=== PATIENT | male | born 1995 | race Hispanic/Latino ===

== ENCOUNTER 2021-03-15 02:19 | Emergency (ER) | payer OTHER, SELFPAY ==
[2021-03-15] MEDS ORDERED: Lidocaine 1% PF 5 ML VIAL ONE (02:42)
== END 2021-03-15 03:10 | disposition home or self-care (01) ==
LOC: BURERS 02:19
DX: S60.122A Contusion of left index finger with damage to nail, initial encounter (principal); X58.XXXA Exposure to other specified factors, initial encounter
CPT/HCPCS: 11740

== ENCOUNTER 2021-07-16 21:23 | Emergency (ER) | payer OTHER | END 2021-07-16 23:02 | disposition home or self-care (01) | LOC: BURERS 21:23 | DX: T18.3XXA Foreign body in small intestine, initial encounter (principal) | CPT/HCPCS: 71046; 74176 ==

== ENCOUNTER 2023-10-10 23:30 | Emergency (ER) | payer OTHER ==
[2023-10-11] MEDS ORDERED: Morphine 4 MG/ML VIAL ONE (00:03)
== END 2023-10-11 00:18 | disposition home or self-care (01) ==
LOC: BURERS 23:30
DX: S43.014A Anterior dislocation of right humerus, initial encounter (principal); W18.30XA Fall on same level, unspecified, initial encounter
CPT/HCPCS: 23650; 96372; J2270